=== PATIENT | female | born 1975 | race Caucasian/White ===

== ENCOUNTER 2018-09-22 10:09 | Observation (INO) | payer MEDICAID ==
[~2018-09-22] VITALS: Ht 162.6 cm; Wt 93.9 kg
[2018-09-22] MEDS ORDERED: PREN1TAB80 PO (11:11)
[2018-09-22] MEDS ORDERED: FERR-89 PO (11:12)
[2018-09-22 11:18] LABS: GLUCOMETER DEV NAME(LOC) 4S.; GLUCOSE,POINT OF CARE 79 MG/DL (70-110)
[2018-09-22 11:26] VITALS: BP 107/57
== END 2018-09-22 11:40 | disposition home or self-care (01) ==
LOC: 4S 10:45
PROVIDERS: ADMIT Obstetrics & Gynecology; ATTEND Obstetrics & Gynecology
DX: O24.419 Gestational diabetes mellitus in pregnancy, unspecified control (principal); O09.523 Supervision of elderly multigravida, third trimester; Z3A.36 36 weeks gestation of pregnancy
CPT/HCPCS: 82962; G0378

== ENCOUNTER 2018-09-26 10:10 | Observation (INO) | payer MEDICAID ==
[~2018-09-26] VITALS: Ht 160 cm; Wt 95.3 kg
[~2018-09-26 10:10] MED LIST: FERR-89 PO; PREN1TAB80 PO
[2018-09-26 11:44] LABS: GLUCOMETER DEV NAME(LOC) 4S.; GLUCOSE,POINT OF CARE 84 MG/DL (70-110)
[2018-09-26 11:52] VITALS: BP 115/59
== END 2018-09-26 11:50 | disposition home or self-care (01) ==
LOC: 4S 10:10
PROVIDERS: ADMIT Obstetrics & Gynecology; ATTEND Obstetrics & Gynecology
DX: O24.419 Gestational diabetes mellitus in pregnancy, unspecified control (principal); O09.523 Supervision of elderly multigravida, third trimester; Z3A.35 35 weeks gestation of pregnancy
CPT/HCPCS: 81002; 82962; G0378

== ENCOUNTER 2018-09-29 10:59 | Observation (INO) | payer MEDICAID ==
[~2018-09-29] VITALS: Ht 162.6 cm; Wt 94.8 kg
[2018-09-29 11:23] VITALS: BP 101/62
== END 2018-09-29 11:15 | disposition home or self-care (01) ==
LOC: 4S 10:59
PROVIDERS: ADMIT Obstetrics & Gynecology; ATTEND Obstetrics & Gynecology
DX: O24.410 Gestational diabetes mellitus in pregnancy, diet controlled (principal); O09.523 Supervision of elderly multigravida, third trimester; Z3A.36 36 weeks gestation of pregnancy
CPT/HCPCS: 81002; G0378

== ENCOUNTER 2018-10-06 10:10 | Observation (INO) | payer MEDICAID ==
[~2018-10-06] VITALS: Ht 162.6 cm; Wt 95.3 kg
[2018-10-06 10:59] LABS: GLUCOSE,POINT OF CARE 121 MG/DL (70-110)
== END 2018-10-06 11:25 | disposition home or self-care (01) ==
LOC: 4S 10:10
PROVIDERS: ADMIT Obstetrics & Gynecology; ATTEND Obstetrics & Gynecology
DX: O24.419 Gestational diabetes mellitus in pregnancy, unspecified control (principal); O48.0 Post-term pregnancy; Z3A.37 37 weeks gestation of pregnancy
CPT/HCPCS: 81002; 82962; G0378

== ENCOUNTER 2018-10-20 06:45 | Inpatient (IN) | payer MEDICAID ==
[~2018-10-20] VITALS: Ht 162.6 cm; Wt 96.2 kg
[~2018-10-20 06:45] MED LIST changes: +CITRIC ACID/SODIUM CITRATE 30 ML SOLUTION UDCUP PO PRN; +CLINDAMYCIN 900 MG/D5% WATER 50 ML IV SCH; +LIDOCAINE/PF 1% 30 ML VIAL INJ PRN; +METOCLOPRAMIDE HCL 5 MG/ML 2 ML VIAL IVP PRN; +OXYTOCIN 30 UNITS/LACT RINGERS 500 ML IV ONE; +RINGERS SOLUTION,LACTATED 1,000 ML IV ONE
[2018-10-20 07:28] VITALS: BP 98/60
[2018-10-20 07:36] LABS: BASOPHILS % (AUTO) 0.5 % (0.0-2.0); EOSINOPHILS % (AUTO) 0.9 % (1.0-6.0); HEMATOCRIT 34.4 % (36-46); HEMOGLOBIN 11.6 g/dL (12.0-16.0); LYMPHOCYTES % (AUTO) 25.6 % (22.0-44.0); MEAN CORPUSCULAR HGB CONC 33.7 G/dL (31.0-37.0); MEAN CORPUSCULAR VOLUME 92 fL (80-100); MONOCYTES # (AUTO) 0.6 K/uL (0.1-1.0); MONOCYTES % (AUTO) 7.7 % (2.0-9.0); NEUTROPHILS # (AUTO) 5.1 K/uL (1.8-7.7); NEUTROPHILS % (AUTO) 65.3 % (40.0-70.0); PLATELET COUNT (AUTO) 218 K/uL (150-450); RED BLOOD CELL COUNT(AUTO) 3.73 MIL/uL (4.00-5.20); RED CELL DISTRIBUTION WIDTH 15.2 % (11.5-14.5)
[2018-10-20] MEDS ORDERED: DINOPROSTONE 10 MG VAGINAL SUPPOSITORY VG ONE (08:15)
[2018-10-20] MEDS: RINGERS SOLUTION,LACTATED 1,000 ML IV SCH ×2 (09:00→16:42)
[2018-10-20 09:25] LABS: GLUCOMETER DEV NAME(LOC) 4S.; GLUCOSE,POINT OF CARE 69 MG/DL (70-110)
[2018-10-20] MEDS ORDERED: AMPICILLIN SODIUM 1 GM/NS 50 ML IV SCH (10:45)
[2018-10-20 18:06] LABS: APPEARANCE,URINE CLEAR (CLEAR); BILIRUBIN,URINE NEGATIVE (NEGATIVE); GLUCOSE, URINE (UA) NEGATIVE (NEGATIVE); KETONES,URINE NEGATIVE (NEGATIVE); LEUKOCYTE ESTERASE ,URINE NEGATIVE (NEGATIVE); NITRATE,URINE NEGATIVE (NEGATIVE); OCCULT BLOOD,URINE NEGATIVE (NEGATIVE); PH,URINE 6.5 (5.0-8.0); PROTEIN,URINE NEGATIVE (NEGATIVE); UROBILINOGEN,URINE 0.2 mg/dL (<=1.0)
[2018-10-20] MEDS ORDERED: -PHARMACY NOTE- MISC ONE (20:15)
[2018-10-20] MEDS ORDERED: RINGERS SOLUTION,LACTATED 1,000 ML IV SCH (22:31)
[2018-10-20] MEDS: MISOPROSTOL 50 MCG TABLET VG SCH (22:44)
[2018-10-21] MEDS: RINGERS SOLUTION,LACTATED 1,000 ML IV SCH ×4 (00:48→21:55)
[2018-10-21] MEDS: MISOPROSTOL 50 MCG TABLET VG SCH ×5 (03:14→18:45)
[2018-10-21] MEDS: FentaNYL CITRATE-PF 100 MCG/2 ML VIAL IVP PRN ×7 (05:40→20:19)
[2018-10-21] MEDS ORDERED: EPHEDrine SULFATE 50 MG/ML VIAL IM ONE (12:00)
[2018-10-21] MEDS ORDERED: ONDANSETRON HCL 4 MG/2 ML VIAL IVP ONE (12:00)
[2018-10-21] MEDS ORDERED: FentaNYL CITRATE-PF 100 MCG/2 ML VIAL IVP ONE (12:00)
[2018-10-21] MEDS ORDERED: OXYTOCIN 10 UNITS/ML VIAL IM ONE (12:00)
[2018-10-21] MEDS ORDERED: MORPHINE SULFATE/PF 0.5 MG/ML 10 ML AMP IVP ONE (12:00)
[2018-10-21] MEDS ORDERED: SODIUM CHLORIDE 0.9% 1,000 ML IV ONE (12:18)
[2018-10-21] MEDS ORDERED: RINGERS SOLUTION,LACTATED 1,000 ML IV ONE ×2 (12:18→13:59)
[2018-10-21] MEDS ORDERED: BUPIVACAINE HCL/DEX-WATER/PF 0.75% 2 ML AMP ONE (12:18)
[2018-10-21] MEDS ORDERED: CHLORHEXIDINE GLUCONATE 4% 118 ML TOPICAL LIQUID TP ONE (12:30)
[2018-10-21] MEDS ORDERED: TRANEXAMIC ACID 1,000 MG in DEXTROSE 5%-WATER 50 ML IV ONE (13:00)
[2018-10-21] MEDS ORDERED: HYDROmorphone 2 MG/ML SYRINGE IVP PRN (13:15)
[2018-10-21] MEDS ORDERED: FentaNYL CITRATE-PF 100 MCG/2 ML VIAL IVP PRN (13:15)
[2018-10-21] MEDS ORDERED: METHYLERGONOVINE MALEATE 0.2 MG/ML VIAL IM PRN (13:15)
[2018-10-21] MEDS ORDERED: MEPERIDINE-PF 25 MG/ML VIAL IVP PRN (13:15)
[2018-10-21] MEDS ORDERED: GUM MASTIC/STORAX/MSAL/ALCOHOL LIQUID 0.67 ML VIAL TP ONE (13:21)
[2018-10-21] MEDS ORDERED: ONDANSETRON HCL 4 MG/2 ML VIAL IVP PRN (13:30)
[2018-10-21] MEDS ORDERED: MORPHINE SULFATE 10 MG/ML SYRINGE IVP PRN (13:30)
[2018-10-21] MEDS ORDERED: NALBUPHINE HCL 10 MG/ML VIAL IVP PRN ×2 (13:30)
[2018-10-21] MEDS ORDERED: NALOXONE HCL 0.4 MG/ML VIAL IVP PRN (13:30)
[2018-10-21] MEDS ORDERED: DiphenhydrAMINE HCL 50 MG/ML VIAL IVP PRN (13:30)
[2018-10-21 13:53] LABS: BASOPHILS % (AUTO) 0.4 % (0.0-2.0); EOSINOPHILS % (AUTO) 0.2 % (1.0-6.0); HEMATOCRIT 32.4 % (36-46); HEMOGLOBIN 10.7 g/dL (12.0-16.0); LYMPHOCYTES # (AUTO) 2.1 K/uL (1.0-4.8); LYMPHOCYTES % (AUTO) 17.3 % (22.0-44.0); MEAN CORPUSCULAR VOLUME 94 fL (80-100); MONOCYTES # (AUTO) 0.7 K/uL (0.1-1.0); MONOCYTES % (AUTO) 5.6 % (2.0-9.0); NEUTROPHILS # (AUTO) 9.2 K/uL (1.8-7.7); NEUTROPHILS % (AUTO) 76.5 % (40.0-70.0); PLATELET COUNT (AUTO)-OB 191 K/uL (150-450); RED BLOOD CELL COUNT(AUTO) 3.45 MIL/uL (4.00-5.20); RED CELL DISTRIBUTION WIDTH 15.2 % (11.5-14.5)
[2018-10-21] MEDS ORDERED: OXYTOCIN 30 UNITS/LACT RINGERS 500 ML IV ONE (14:32)
[2018-10-21] MEDS ORDERED: LANOLIN 7 GM OINTMENT TP PRN (14:45)
[2018-10-21] MEDS: ACETAMINOPHEN 1000 MG/ISO-OSM 100 ML IV SCH ×2 (15:18→23:25)
[2018-10-21] MEDS ORDERED: OXYGEN THERAPY IH SCH ×3 (20:00)
[2018-10-21] MEDS ORDERED: METHYLERGONOVINE MALEATE 0.2 MG/ML VIAL ONE (20:13)
[2018-10-22] MEDS ORDERED: MEASLES/MUMPS/RUBELLA VACCINE, LIVE 0.5 ML/VIAL SQ ONE (02:30)
[2018-10-22] MEDS: FentaNYL CITRATE-PF 100 MCG/2 ML VIAL IVP PRN (04:42)
[2018-10-22 06:49] LABS: BASOPHILS % (AUTO) 0.2 % (0.0-2.0); EOSINOPHILS % (AUTO) 0.1 % (1.0-6.0); HEMATOCRIT 28.1 % (36-46); HEMOGLOBIN 9.5 g/dL (12.0-16.0); LYMPHOCYTES # (AUTO) 0.9 K/uL (1.0-4.8); LYMPHOCYTES % (AUTO) 6.5 % (22.0-44.0); MEAN CORPUSCULAR HEMOGLOBIN 31.5 pg (26.0-34.0); MEAN CORPUSCULAR HGB CONC 33.8 G/dL (31.0-37.0); MEAN CORPUSCULAR VOLUME 93 fL (80-100); MONOCYTES # (AUTO) 0.7 K/uL (0.1-1.0); MONOCYTES % (AUTO) 5.4 % (2.0-9.0); NEUTROPHILS # (AUTO) 12.1 K/uL (1.8-7.7); PLATELET COUNT (AUTO)-OB 210 K/uL (150-450); RED BLOOD CELL COUNT(AUTO) 3.02 MIL/uL (4.00-5.20); RED CELL DISTRIBUTION WIDTH 15.5 % (11.5-14.5)
[2018-10-22 07:00] LABS: NEUTROPHILS % (AUTO) 87.8 % (40.0-70.0)
[2018-10-22] MEDS: MAGNESIUM HYDROXIDE SUSPENSION 30 ML UDCUP PO SCH ×2 (08:37→21:06)
[2018-10-22] MEDS: OxyCODONE HCL/ACETAMINOPHEN 5-325 MG TABLET PO PRN ×4 (11:16→23:02)
[2018-10-22] MEDS ORDERED: OxyCODONE HCL 5 MG IR TABLET PO PRN (11:30)
[2018-10-22] MEDS: IBUPROFEN 800 MG TABLET PO PRN ×2 (12:23→18:38)
[2018-10-22] MEDS ORDERED: IBUPROFEN 800 MG TABLET PO PRN (14:45)
[2018-10-23] MEDS: IBUPROFEN 800 MG TABLET PO PRN ×2 (01:46→08:39)
[2018-10-23] MEDS: OxyCODONE HCL/ACETAMINOPHEN 5-325 MG TABLET PO PRN ×2 (03:25→08:39)
[2018-10-23] MEDS: MAGNESIUM HYDROXIDE SUSPENSION 30 ML UDCUP PO SCH (08:31)
[2018-10-23] MEDS ORDERED: IBUP-2071 PO (10:04)
[2018-10-23] MEDS ORDERED: FERR-89 PO (10:05)
[2018-10-23] MEDS ORDERED: DSS100 PO (10:05)
[2018-10-23] MEDS ORDERED: PERCT PO (10:06)
== END 2018-10-23 12:25 | disposition home or self-care (01) | DRG 540 ==
LOC: 4S 06:45 → PREOBSVTOIN 10-30 07:12
PROVIDERS: ADMIT Obstetrics & Gynecology; ATTEND Obstetrics & Gynecology
PROC: 10D00Z1 Extraction of Products of Conception, Low, Open Approach (ICD-10-PCS; principal; 2018-10-21)
DX: O32.1XX0 Maternal care for breech presentation, not applicable or unspecified (principal); Z37.0 Single live birth; Z3A.39 39 weeks gestation of pregnancy
CPT/HCPCS: 86850; 86900; 86901; 90707; J0131; J0690; J2210; J2270; J2274; J2300; J2405; J2590; J2765; J3010; J3490; J7030; J7060; J7120